=== PATIENT | male | born 1965 | race Caucasian/White ===

== ENCOUNTER 2019-05-24 21:17 | Emergency (ER) | payer OTHER, SELFPAY ==
--- NOTE | ~2019-05-24 | XR_ITS ---
EXAMINATION: XR chest 2V 05/24/2019 21:47 INDICATION: Shortness of breath PROCEDURE: 2 view chest COMPARISON: Comparison to multiple prior studies sequentially, with oldest reviewed study dated Palomo rison to multiple prior studies sequentially, with oldest reviewed study dated 06/01/2018. . FINDINGS: The lungs are clear. The lungs are hyperinflated which is consistent with, but not diagnost ic of chronic obstructive pulmonary disease. The cardiomediastinal silhouette is within normal limits . There are no pleural effusions. There is no pneumothorax suspected. There is side plate and scre ws transfixing the right clavicle. Mild superior endplate compression deformities noted in multiple m idthoracic vertebra which appear chronic. IMPRESSION: 1: NO ACUTE CARDIOPULMONARY DISEASE. Reviewed, dictated and finalized at location A.
[2019-05-24 21:17] VITALS: BP 149/97; PULSE 96; RESP 24; TEMP 36.8; O2SAT 95
[2019-05-24 21:45] VITALS: BP 139/93; PULSE 100; PULSE 92; RESP 22; RESP 28; O2SAT 99
[2019-05-24] MEDS: SODIUM CHLORIDE 0.9% IV 1,000 ML 999 ML IV CONT (21:45)
[2019-05-24] MEDS: IPRATROPIUM 0.5 MG/ALBUTEROL SULFATE 2.5 MG AMPUL.NEB 3 ML INHALATION (21:46)
[2019-05-24] MEDS: KETOROLAC 30 MG/ML VIAL (*BKC) IV PUSH (21:46)
[2019-05-24] MEDS: methylPREDNISolone SOD SUCC 125 MG VIAL IV PUSH (21:46)
[2019-05-24 21:56] LABS: Basophils Absolute Auto 0.03 K/mm3 (0.00-0.10); Basophils Percent Auto 0.5 % (0.0-1.0); Eosinophils Absolute Auto 0.22 K/mm3 (0.02-0.50); Eosinophils Percent Auto 3.7 % (1.0-6.0); Hematocrit 44.5 % (40.0-54.0); Hemoglobin 15.1 g/dL (14.0-18.0); Immature Granulocyte Absolute 0.02 K/mm3 (0.00-0.00); Immature Granulocyte Percent A 0.3 % (0.0-0.0); Lymphocytes Absolute Auto 1.46 K/mm3 (1.10-4.50); Lymphocytes Percent Auto 24.4 % (18.0-42.0); Mean Corpuscular HGB Conc 33.9 g/dL (32.0-36.0); Mean Corpuscular Hemoglobin 29.2 pg (27.0-31.0); Mean Corpuscular Volume 85.9 fL (78.0-102.0); Mean Platelet Volume 9.9 fl (8.7-11.0); Monocytes Absolute Auto 0.33 K/mm3 (0.10-0.90); Monocytes Percent Auto 5.5 % (2.0-11.0); Neutrophils Absolute Auto 3.9 K/mm3 (1.7-7.2); Neutrophils Percent Auto 65.6 % (50.0-70.0); Platelet Count Result 213 K/mm3 (150-420); Red Blood Count 5.18 M/mm3 (4.70-6.10); Red Cell Distribution Width 12.7 % (11.6-14.4)
[2019-05-24 22:09] LABS: Alanine Aminotransferase 43 U/L (16-63); Albumin Level 3.8 g/dL (3.4-5.0); Alkaline Phosphatase 193 U/L (46-116); Anion Gap 11.2 mmol/L (7-16); Aspartate Amino Transferase 24 U/L (15-37); Bilirubin,Total 0.5 mg/dL (0.00-1.00); Blood Urea Nitrogen 10 mg/dL (7-18); Calcium 8.6 mg/dL (8.5-10.1); Carbon Dioxide 28 mmol/L (21-32); Chloride 103 mmol/L (98-108); Estimated CRCL calculation 81 ml/min; Estimated Glomerular Filt Rate > 60; Glucose 87 mg/dL (70-99); Osmolality Calculated 284 mOsm/kg (285-295); Potassium 4.2 mmol/L (3.5-5.1); Sodium 138 mmol/L (136-145); Total Protein 7.7 g/dL (6.4-8.2)
[2019-05-24 22:10] LABS: Ethanol 7 mg/dL (0-6)
[2019-05-24 22:12] LABS: Influenza Control Valid (Valid)
--- NOTE | 2019-05-24 22:13 | PC.NURSE ---
Dr Yates at bedside for re-eval.
--- NOTE | 2019-05-24 22:15 | ED.SOB ---
HPI - SOB/Dyspnea General Chief Complaint: Shortness of Breath/Dyspnea Stated Complaint: amb Source: patient Mode of arrival: EMS Limitations: no limitations History of Present Illness HPI Narrative: This is a 53-year-old patient male that presents via EMS with shortness of breath, patient called EMS because he was having hard time with his breathing did receive a DuoNeb EN route to the ER. While in ER his O2 sats hovered around 91% was given additional DuoNeb and IV steroids. Denies any chest pain or pressure does have a mild nonproductive cough with some audible wheezing and diminished breath sounds but there is no nausea vomiting no abdominal pain no fever or chills. MD elicited complaint: shortness of breath and cough Pertinent past history: COPD Onset (ago): day(s) Context: recent illness Timing: intermittent Severity: mild Exacerbating factors: coughing Known history of: COPD Associated symptoms: denies other symptoms Treatment prior to arrival: bronchodilator Related Data Home oxygen amount: none Home Medications Medication Instructions Recorded Confirmed ipratropium-albuterol 3 ml INHALATION Q4HWA PRN 01/20/19 05/24/19 tramadol 50 mg PO Q6-8H PRN 03/16/19 05/24/19 atorvastatin 10 mg PO DAILY 05/24/19 05/24/19 ergocalciferol (vitamin D2) 50,000 unit PO WEEKLY 05/24/19 05/24/19 omeprazole 20 mg PO BID 05/24/19 05/24/19 Allergies Allergy/AdvReac Type Severity Reaction Status Date / Time No Known Allergies Allergy Verified 01/20/19 11:35 Review of Systems Review of Systems: All systems reviewed & are unremarkable except as noted in HPI and below PMFSH Past Medical History Medical History Abdominal pain Alcohol abuse Anxiety Chronic narcotic use Chronic pain COPD (chronic obstructive pulmonary disease) History of fracture of left ankle Ileus Nicotine abuse Surgical History Surgical History H/O left wrist surgery Hx of cholecystectomy Family History Family History Father Diabetes mellitus Mother Hypertension Social History Social History Smoking packs per day: 2 Smoking cigarettes per day: 40.0 Smoking status: Current every day smoker Alcohol intake: current Drinks per week: 28 Substance use type: does not use Additional living arrangements comments: the patient is engaged and lives with his fiancee. He does not have a durable power green end man for healthcare. The patient wishes to be a full code. The patient has no children. He is a retired fabrication mig welder. Gender identity (if verbalized by the patient): Male Spiritual care concerns: No Agree to blood products: Yes Exam Const: General: no acute distress and alert Nutritional Appearance: well nourished Orientation/consciousness: patient oriented x3 HENMT: Head: normal to inspection Eyes: Conjunctivae: conjunctivae normal Pupils: Equal, round and reactive pupils present Neck: Neck: normal visual inspection, no lymphadenopathy and no meningeal signs Chest: Chest palpation & inspection: normal inspection of the chest Resp: Effort & Inspection: normal respiratory effort Auscultation: wheezes and diminished lung sounds Cardio: Rate: regular rate Rhythm: regular rhythm GI: GI Palp: Yes Soft to palpation Back/Spine/Pelvis: Back: no CVA tenderness Skin: General skin exam: normal color Rashes: no rashes Neuro: General: patient oriented x3, moves all extremities and no meningeal signs Extrem: General: normal to inspection Course Course Emergency Course: Patient O2 sats at about 94 to 95% after breathing treatment and IV steroids patient is breathing much easier Vital Signs Vital signs: Vital Signs Temperature 36.8 C 05/24/19 21:17 Pulse Rate 96 05/24/19 21:17 Respiratory Rate 2
[2019-05-24 22:20] VITALS: BP 133/87; PULSE 96; RESP 22; O2SAT 95
== END 2019-05-24 22:20 | disposition home or self-care (01) ==
PROVIDERS: Emergency Provider Emergency Medicine
DX: J44.9 Chronic obstructive pulmonary disease, unspecified (principal)
CPT/HCPCS: 36415; 71046; 80053; 80307; 85025; 87040; 87804; 94640; 96361; 96374; 96375; 99283; 99284; J1885; J2930; J7030

== ENCOUNTER 2019-11-13 08:11 | Outpatient (CLI) | payer OTHER, SELFPAY ==
--- NOTE | ~2019-11-13 | XR_ITS ---
EXAMINATION: [id number] INDICATION: Left rib pain TECHNIQUE: A frontal view of the chest and 3 views of the left ribs were obtained. COMPARISON: 05/24/2019 FINDINGS: There is an old, healed fracture of the left fourth rib. No acute rib fracture is identifie d. The lungs are free of acute opacities. There is no pleural effusion or pneumothorax. The cardiomed iastinal silhouette is normal. Internal stabilization hardware is noted in the right clavicle. IMPRESSION: 1. No acute cardiopulmonary abnormality or evidence of acute displaced rib fracture. Reviewed, dictated and finalized at location A. IMPRESSION: 1. No acute cardiopulmonary abnormality or evidence of acute displaced rib frac ture.
--- NOTE | ~2019-11-13 | XR_ITS ---
EXAMINATION: XR elbow LT min 3V DATE: 11/13/2019 08:44 INDICATION: Left elbow pain. TECHNIQUE: 4 views of left elbow were obtained. COMPARISON: Left elbow radiographs 09/23/2018 FINDINGS: Bone alignment is normal. No fracture. There is mild elbow joint osteoarthritis characteriz ed by tiny marginal osteophytes. There is an enthesophyte at olecranon. There is no elbow joint effus ion. IMPRESSION: 1. Mild elbow joint osteoarthritis. Reviewed, dictated and finalized at location A.
== END 2019-11-13 08:12 | disposition home or self-care (01) ==
LOC: CHSIMG 08:13
PROVIDERS: PCP Nurse Practitioner Family; Visit Provider Nurse Practitioner Family
DX: M25.522 Pain in left elbow (principal); R07.81 Pleurodynia
CPT/HCPCS: 71101; 73080

== ENCOUNTER 2019-12-10 07:38 | Emergency (ER) | payer OTHER, SELFPAY ==
--- NOTE | ~2019-12-10 | CT_ITS ---
EXAMINATION: CT abdomen pelvis w con EXAM DATE: 12/10/2019 09:22 INDICATION: Left upper quadrant pain radiating to left flank. History of ileus.? Hernia. TECHNIQUE: Spiral CT of the abdomen and pelvis was performed following intravenous injection of 100 m L Omnipaque 350. Axial, coronal and sagittal images were reviewed. The dose-length product (DLP) fo r this examination was 625.87 mGy-cm. The exposure was tailored according to patient size (auto mA e xposure control), and iterative reconstruction (ASIR) was used as additional dose reduction technique . Comparison is made to prior examination from 03/16/2019. FINDINGS: The liver, spleen, adrenal glands and pancreas are unremarkable. There are cholecystectomy clips. Portal and splenic veins are patent. Kidneys enhance symmetrically. There is no hydronephr osis. The prostate is unremarkable. The bladder is unremarkable. There is no retroperitoneal or p elvic lymphadenopathy. There is mild scattered arteriosclerotic disease. There is small right ingui nal fat-containing hernia. Small umbilical fat-containing hernia. The appendix is normal. The stomach and small bowel are unremarkable. There is expected amount of c olonic stool. No free intraperitoneal gas. The heart is normal in size. There are no pericardial or pleural effusions. The lung bases are unremarkable. There are no osteoblastic or osteolytic les ions identified. IMPRESSION: 1. Small umbilical and right inguinal fat-containing hernias. 2. No acute intra-abdominal findings. Reviewed, dictated and finalized at location A.
[2019-12-10 07:45] VITALS: BP 178/112; PULSE 97; RESP 20; TEMP 37.1; O2SAT 95
--- NOTE | 2019-12-10 08:04 | ED.ABDPAIN ---
HPI - Abdominal Pain General Chief Complaint: Abdominal Pain Stated Complaint: hernia Time Seen by Provider: 12/10/19 07:50 History of Present Illness HPI narrative: 54-year-old male patient is here with chief complaints of diffuse abdominal pain for the last 2 weeks. He states that the pain is generalized and sometimes localizes more to the left upper abdomen. He describes the pain as having 'dropped is got caught . The patient denies any associated nausea vomiting a day patient states that there is no difficulty in urination. The patient denies any fever or chills. Patient has been seen by his primary care physician for this complaint and is currently on some muscle relaxants and has been taking ibuprofen regularly. The patient has had no relief. Apparently patient has had similar abdominal pains in the past as well and current his past medical history he has had ileus. He has a history of prior cholecystectomy. Related Data Home Medications Medication Instructions Recorded Confirmed ipratropium-albuterol 3 ml INHALATION Q4HWA PRN 01/20/19 12/10/19 atorvastatin 10 mg PO DAILY 12/10/19 12/10/19 cyclobenzaprine 10 mg PO TID 12/10/19 12/10/19 diclofenac sodium 75 mg PO BID 12/10/19 12/10/19 fluticasone propion-salmeterol 1 inh INHALATION DAILY 12/10/19 12/10/19 [Wixela Inhub] levalbuterol HCl 1.25 mg INHALATION Q4-6H PRN 12/10/19 12/10/19 lisinopril 20 mg PO DAILY 12/10/19 12/10/19 prednisone 10 mg PO DAILY 12/10/19 12/10/19 Allergies Allergy/AdvReac Type Severity Reaction Status Date / Time No Known Allergies Allergy Verified 01/20/19 11:35 Review of Systems Review of Systems: All systems reviewed & are unremarkable except as noted in HPI and below Cardiovascular: Cardiovascular: Denies chest pain, Denies rapid heart rate, Denies radiating jaw, neck or arm pain and Denies slow heart rate Respiratory: Respiratory: Reports no additional respiratory complaints Neurologic: Denies vertigo and Denies dizziness Psychiatric: Psychiatric: Reports no additional psychiatric complaints PMFSH Past Medical History Medical History Abdominal pain Alcohol abuse Anxiety Chronic narcotic use Chronic pain COPD (chronic obstructive pulmonary disease) History of fracture of left ankle Ileus Nicotine abuse Surgical History Surgical History H/O left wrist surgery Hx of cholecystectomy Family History Family History Father Diabetes mellitus Mother Hypertension Social History Social History Smoking packs per day: 2 Smoking cigarettes per day: 40.0 Smoking status: Current every day smoker Alcohol intake: current Drinks per week: 28 Substance use type: does not use Additional living arrangements comments: the patient is engaged and lives with his fiancee. He does not have a durable power employment law attorney for healthcare. The patient wishes to be a full code. The patient has no children. He is a retired welder fitter arc. Gender identity (if verbalized by the patient): Male Spiritual care concerns: No Agree to blood products: Yes Exam Const: General: no acute distress and alert Orientation/consciousness: patient oriented x3 HENMT: Head: normal to inspection Eyes: Conjunctivae: conjunctivae normal Pupils: Equal, round and reactive pupils present EOM: EOMs intact bilaterally Neck: Neck: normal visual inspection Chest: Chest palpation & inspection: normal inspection of the chest Resp: Effort & Inspection: normal respiratory effort Auscultation: clear to auscultation bilaterally Cardio: Rate: regular rate Rhythm: regular rhythm GI: GI Palp: Yes Soft to palpation, Yes Tenderness to palpation present (GI) (Minimally tender diffusely), No Guarding due to palpation present (GI), No Rigid due to palpation,
[2019-12-10 08:15] VITALS: BP 140/83; PULSE 90; RESP 18; O2SAT 97
[2019-12-10] MEDS: KETOROLAC 30 MG/ML VIAL (*BKC) IV PUSH (08:23)
[2019-12-10 08:27] LABS: Add Urine Microscopic? NO; Appearance Urine Clear (Clear); Bilirubin Urine Negative (Negative); Blood Urine Negative (Negative); Color Urine Yellow (Yellow); Glucose Urine UA Negative (Negative); Ketones Urine Negative (Negative); Leukocyte Esterase Ur Negative LEU/UL (Negative); Nitrate Urine Negative (Negative); Protein Urine Negative (Negative); Specific Grav Ur 1.015 (1.010-1.020); Urobilinogen Urine 0.2 mg/dL (0.2-1.0)
[2019-12-10 08:40] LABS: Basophils Absolute Auto 0.03 K/mm3 (0.00-0.10); Basophils Percent Auto 0.4 % (0.0-1.0); Eosinophils Absolute Auto 0.09 K/mm3 (0.02-0.50); Eosinophils Percent Auto 1.2 % (1.0-6.0); Hematocrit 44.3 % (40.0-54.0); Immature Granulocyte Absolute 0.04 K/mm3 (0.00-0.00); Immature Granulocyte Percent A 0.5 % (0.0-0.0); Lymphocytes Absolute Auto 1.35 K/mm3 (1.10-4.50); Lymphocytes Percent Auto 17.4 % (18.0-42.0); Mean Corpuscular HGB Conc 33.9 g/dL (32.0-36.0); Mean Corpuscular Hemoglobin 30.1 pg (27.0-31.0); Mean Platelet Volume 9.6 fl (8.7-11.0); Monocytes Absolute Auto 0.45 K/mm3 (0.10-0.90); Monocytes Percent Auto 5.8 % (2.0-11.0); Neutrophils Absolute Auto 5.8 K/mm3 (1.7-7.2); Neutrophils Percent Auto 74.7 % (50.0-70.0); Platelet Count Result 203 K/mm3 (150-420); Red Blood Count 4.98 M/mm3 (4.70-6.10); Red Cell Distribution Width 13.6 % (11.6-14.4); White Blood Count 7.8 K/mm3 (4.8-10.8)
[2019-12-10 08:58] LABS: Alanine Aminotransferase 78 U/L (16-63); Albumin Level 4.2 g/dL (3.4-5.0); Alkaline Phosphatase 114 U/L (46-116); Anion Gap 7 mmol/L (8-16); Aspartate Amino Transferase 26 U/L (15-37); Bilirubin Direct 0.2 mg/dL (0-0.2); Blood Urea Nitrogen 16 mg/dL (7-18); Calcium 8.9 mg/dL (8.5-10.1); Carbon Dioxide 30 mmol/L (21-32); Chloride 99 mmol/L (98-108); Estimated CRCL calculation 77 ml/min; Estimated Glomerular Filt Rate > 60; Glucose 103 mg/dL (70-99); Lipase 55 U/L (73-393); Osmolality Calculated 283 mOsm/kg (285-295); Potassium 4.1 mmol/L (3.5-5.1); Sodium 136 mmol/L (136-145); Total Protein 7.5 g/dL (6.4-8.2)
[2019-12-10 09:59] VITALS: BP 138/78; PULSE 97; RESP 18; TEMP 36.6; O2SAT 98
== END 2019-12-10 10:04 | disposition home or self-care (01) ==
PROVIDERS: Emergency Provider Emergency Medicine; PCP Nurse Practitioner Family
DX: R10.9 Unspecified abdominal pain (principal)
CPT/HCPCS: 36415; 74177; 80053; 81003; 82248; 83690; 85025; 96374; 99284; J1885; Q9965

== ENCOUNTER 2020-07-14 17:34 | Emergency (ER) | payer MEDICARE, MEDICAID, SELFPAY ==
[2020-07-14 17:47] VITALS: BP 163/103; PULSE 90; RESP 20; TEMP 37.2; O2SAT 94
--- NOTE | 2020-07-14 17:59 | ED.GENADULT ---
HPI - General Adult General Chief complaint: Unspecified Stated complaint: High BP Source: patient and RN notes reviewed Mode of arrival: ambulatory Limitations: no limitations History of Present Illness HPI narrative: Patient had elevated blood pressure At his primary care office it was 146/110 he was given 10 mg of lisinopril and 0.1 of clonidine and went home at home it was 176/118 he called back to his PCP and was advised to come here. complaint: Elevated BP Onset (ago): hour(s) (10) Severity: moderate Associated symptoms: denies other symptoms Treatments prior to arrival: none Related Data Home Medications Medication Instructions Recorded Confirmed ipratropium-albuterol 3 ml INHALATION Q4HWA PRN 01/20/19 07/14/20 atorvastatin 10 mg PO DAILY 12/10/19 07/14/20 cyclobenzaprine 10 mg PO TID 12/10/19 07/14/20 diclofenac sodium 75 mg PO BID 12/10/19 07/14/20 fluticasone propion-salmeterol 1 inh INHALATION DAILY 12/10/19 07/14/20 [Wixela Inhub] levalbuterol HCl 1.25 mg INHALATION Q4-6H PRN 12/10/19 07/14/20 lisinopril 20 mg PO DAILY 12/10/19 07/14/20 prednisone 10 mg PO DAILY 12/10/19 07/14/20 Allergies Allergy/AdvReac Type Severity Reaction Status Date / Time No Known Allergies Allergy Verified 01/20/19 11:35 Review of Systems Review of Systems: All systems reviewed & are unremarkable except as noted in HPI and below Musculoskeletal: Comments: left-sided rib pain he has had for 3 months [facility] Past Medical History Medical History (Updated 07/14/20 @ 18:52 by Tomas Thompson MD) Abdominal pain Alcohol abuse Anxiety Chronic narcotic use Chronic pain COPD (chronic obstructive pulmonary disease) History of fracture of left ankle Hypertension Ileus Nicotine abuse Surgical History Surgical History H/O left wrist surgery Hx of cholecystectomy Family History Family History Father Diabetes mellitus Mother Hypertension Social History Social History Smoking packs per day: 2 Smoking cigarettes per day: 40.0 Smoking status: Current every day smoker Alcohol intake: current Drinks per week: 28 Substance use type: does not use Additional living arrangements comments: the patient is engaged and lives with his fiancee. He does not have a durable power state attorney for healthcare. The patient wishes to be a full code. The patient has no children. He is a retired welder production line combination. Gender identity (if verbalized by the patient): Male Spiritual care concerns: No Agree to blood products: Yes Exam Const: General: cooperative, healthy appearing and no acute distress Nutritional Appearance: average body habitus and well nourished Orientation/consciousness: patient oriented x3 Limitations: no limitations HENMT: Head: normal to inspection Ears: external ears normal Face and sinus: normal facial exam Mouth: Yes moist mucous membranes Eyes: Conjunctivae: conjunctivae normal Pupils: Equal, round and reactive pupils present EOM: EOMs intact bilaterally Neck: Neck: normal visual inspection Resp: Effort & Inspection: normal respiratory effort Auscultation: clear to auscultation bilaterally Cardio: Rate: regular rate Rhythm: regular rhythm GI: GI Palp: Yes Soft to palpation and No Tenderness to palpation present (GI) Auscultation: normal bowel sounds Back/Spine/Pelvis: Cervical Spine: cervical ROM normal Thoracic/Lumbar Spine: thoraco-lumbar ROM normal Skin: General skin exam: normal color Neuro: General: patient oriented x3, moves all extremities, no meningeal signs and no focal motor deficits Speech: normal speech Gait exam (Neuro): Normal gait present Extrem: General: normal to inspection and no clubbing, cyanosis or edema Psych: Appearance: grossly normal and well kempt Mental Status: mental status grossly normal Affect: no
--- NOTE | 2020-07-14 18:04 | PC.NURSE ---
PATIENT DRINKS DAILY, SMOKES 2 PACKS A DAY OF CIGARETTES
[2020-07-14] MEDS: hydrALAZINE HCL 25 MG TABLET PO (18:10)
[2020-07-14 18:47] VITALS: BP 135/100; PULSE 90; RESP 18; O2SAT 94
--- NOTE | 2020-07-14 18:49 | PC.NURSE ---
patient on list to get COVID vaccine
[2020-07-14 19:11] VITALS: BP 138/99; PULSE 88; RESP 18; TEMP 37; O2SAT 94
== END 2020-07-14 19:12 | disposition home or self-care (01) ==
PROVIDERS: Emergency Provider Emergency Medicine; PCP Nurse Practitioner Family
DX: I16.0 Hypertensive urgency (principal); G89.29 Other chronic pain; J44.9 Chronic obstructive pulmonary disease, unspecified; I10 Essential (primary) hypertension; F10.11 Alcohol abuse, in remission; F41.9 Anxiety disorder, unspecified; F19.10 Other psychoactive substance abuse, uncomplicated; Z87.81 Personal history of (healed) traumatic fracture
CPT/HCPCS: 99283; A9270

== ENCOUNTER 2020-07-16 09:12 | Outpatient (CLI) | payer MEDICARE, MEDICAID, SELFPAY ==
--- NOTE | ~2020-07-16 | XR_ITS ---
EXAMINATION: XR knee LT min 4V DATE: 07/16/2020 09:49 INDICATION: Left knee pain TECHNIQUE: Four views of the left knee were obtained. COMPARISON: None. FINDINGS: Alignment is normal. No fracture or osteochondral lesion. Joint spaces are normal with no e rosions. No joint effusion/synovitis. Soft tissues are unremarkable. IMPRESSION: 1. No acute osseous abnormality. Reviewed, dictated and finalized at location A.
== END 2020-07-16 09:13 | disposition home or self-care (01) ==
LOC: CHSIMG 09:15
PROVIDERS: PCP Nurse Practitioner Family; Visit Provider Nurse Practitioner Family
DX: M25.562 Pain in left knee (principal)
CPT/HCPCS: 73564

== ENCOUNTER 2021-07-15 11:14 | Emergency (ER) | payer MEDICARE, MEDICAID, SELFPAY ==
--- NOTE | ~2021-07-15 | XR_ITS ---
EXAMINATION: XR chest 1V portable DATE: 07/15/2021 12:16 INDICATION: Shortness of breath. Chest pain. TECHNIQUE: A single frontal view of the chest was obtained. COMPARISON: Chest 2 views 05/24/2019, CT abdomen and pelvis 12/10/2019 FINDINGS: There is mild atelectasis in left lower lung zone. Calcified left lung nodules and calcifie d left hilar lymph nodes are consistent with old granulomatous disease. No pleural effusion or pneumo thorax. The heart size is normal. There is plate and screw fixation of right clavicle. There are old healed left rib fractures. IMPRESSION: 1. Mild atelectasis in left lower lung zone. Reviewed, dictated and finalized at location B.
[2021-07-15 11:28] VITALS: BP 155/94; PULSE 77; RESP 16; TEMP 36.6; O2SAT 96
--- NOTE | 2021-07-15 11:30 | ED.CHESTPAIN ---
HPI - Chest Pain General Chief Complaint: Chest Pain Stated Complaint: High Blood Pressure/Chest pain Time Seen by Provider: 07/15/21 11:30 Source: patient History of Present Illness HPI narrative: 55-year-old male, smoker, alcoholic with hypertension, COPD, chronic pain, anxiety, duodenal ulcer presents to the ER -- left-sided chest pain off and on for the past 3 weeks. he was seen by his PCP had blood work and EKG done 1 week ago. -- Shortness of breath -- diarrhea diffuse abdominal past few days patient had a negative Cardiac stress test 2011. complaint: chest pain Onset (ago): week(s) ( started 3 weeks ago) Timing of current episode: constant Prior episodes: No Onset: during rest Pain location: left chest Pain radiation: none Pain scale (0-10): 4 Quality: aching Relieving factors: nothing Exacerbating factors: nothing Associated symptoms: palpitations Treatment prior to arrival: none Related Data Home Medications Medication Instructions Recorded Confirmed ipratropium-albuterol 3 ml INHALATION Q4HWA PRN 01/20/19 07/15/21 atorvastatin 10 mg PO DAILY 12/10/19 07/15/21 lisinopril 20 mg PO DAILY 12/10/19 07/15/21 gabapentin 400 mg PO DAILY 07/15/21 07/15/21 meloxicam 7.5 mg PO DAILY 07/15/21 07/15/21 metoprolol succinate 100 mg PO BID 07/15/21 07/15/21 Allergies Allergy/AdvReac Type Severity Reaction Status Date / Time No Known Allergies Allergy Verified 07/15/21 11:33 [facility] Past Medical History Medical History (Updated 07/15/21 @ 13:49 by Abhilash Govea MD) Abdominal pain Alcohol abuse Anxiety Chronic narcotic use Chronic pain COPD (chronic obstructive pulmonary disease) History of fracture of left ankle Hypertension Ileus Nicotine abuse Surgical History Surgical History H/O left wrist surgery Hx of cholecystectomy Family History Family History Father Diabetes mellitus Mother Hypertension Social History Social History Smoking packs per day: 2 Smoking cigarettes per day: 40.0 Smoking status: Current every day smoker Alcohol intake: current Drinks per week: 28 Substance use type: does not use Additional living arrangements comments: the patient is engaged and lives with his fiancee. He does not have a durable power contract attorney for healthcare. The patient wishes to be a full code. The patient has no children. He is a retired welder manufacture. Gender identity (if verbalized by the patient): Male Spiritual care concerns: No Agree to blood products: Yes Course Course Emergency Course: chest discomfort- rule out coronary artery disease shortness of breath-- Vital Signs Vital signs: Vital Signs Temperature 36.6 C 07/15/21 11:28 Pulse Rate 77 07/15/21 11:28 Respiratory Rate 16 07/15/21 11:28 Blood Pressure 155/94 H 07/15/21 11:28 Pulse Oximetry 96 07/15/21 11:28 Temperature 36.6 C 07/15/21 11:28 Pulse Rate 77 07/15/21 11:28 Respiratory Rate 16 07/15/21 11:28 Blood Pressure 155/94 H 07/15/21 11:28 Pulse Oximetry 96 07/15/21 11:28 MDM - Chest Pain MDM Narrative Medical decision making narrative: chest pain shortness of breath abdominal pain Differential Diagnosis Differential diagnosis: Likely pneumothorax, unstable angina pectoris and atypical chest pain Medical Records Data Attestation: I reviewed the patient's medical records. Lab Data Attestation: I reviewed the patient's lab results. Result diagrams: 07/15/21 12:28 07/15/21 12:30 Labs: Lab Results 07/15/21 07/15/21 07/15/21 Range/Units 12:28 12:28 12:28 WBC 5.6 (4.8-10.8) K/mm3 RBC 5.14 (4.70-6.10) M/mm3 Hgb 15.1 (14.0-18.0) g/dL Hct 45.0 (40.0-54.0) % MCV 87.5 (78.0-102.0) fL MCH 29.4 (27.0-31.0) pg MCHC 33.6 (32.0-36.0) g/dL RDW 12.5
--- NOTE | 2021-07-15 11:41 | ECG_ITS ---
Measurements Intervals [place]us Rate: 68 P: 71 MN: 192 QRS: 46 QRSD: 93 T: 69 QT: 391 QTc: 417 Interpretive Statements SINUS RHYTHM INCOMPLETE RIGHT BUNDLE BRANCH BLOCK BASELINE ARTIFACT- II, III BORDERLINE ECG Electronically Signed On 07-15-2021 12:07:13 CDT by Eduin Wetzel D.O.
[2021-07-15] MEDS: ASPIRIN 81 MG CHEWABLE TABLET 324 MG PO (12:21)
[2021-07-15 12:37] LABS: Basophils Absolute Auto 0.04 K/mm3 (0.00-0.10); Basophils Percent Auto 0.7 % (0.0-1.0); Eosinophils Absolute Auto 0.13 K/mm3 (0.02-0.50); Eosinophils Percent Auto 2.3 % (1.0-6.0); Hemoglobin 15.1 g/dL (14.0-18.0); Immature Granulocyte Absolute 0.03 K/mm3 (0.00-0.00); Immature Granulocyte Percent A 0.5 % (0.0-0.0); Lymphocytes Absolute Auto 1.26 K/mm3 (1.10-4.50); Lymphocytes Percent Auto 22.6 % (18.0-42.0); Mean Corpuscular HGB Conc 33.6 g/dL (32.0-36.0); Mean Corpuscular Hemoglobin 29.4 pg (27.0-31.0); Mean Corpuscular Volume 87.5 fL (78.0-102.0); Monocytes Absolute Auto 0.41 K/mm3 (0.10-0.90); Monocytes Percent Auto 7.4 % (2.0-11.0); Neutrophils Absolute Auto 3.7 K/mm3 (1.7-7.2); Neutrophils Percent Auto 66.5 % (50.0-70.0); Platelet Count Result 206 K/mm3 (150-420); Red Blood Count 5.14 M/mm3 (4.70-6.10); Red Cell Distribution Width 12.5 % (11.6-14.4); White Blood Count 5.6 K/mm3 (4.8-10.8)
[2021-07-15 12:52] LABS: Partial Thromboplastin Time 30.1 SEC (23.90-30.70); Prothrombin Time 10.5 Seconds (9.50-12.10)
[2021-07-15 13:00] LABS: Alanine Aminotransferase 58 U/L (16-63); Albumin Level 3.6 g/dL (3.4-5.0); Alkaline Phosphatase 137 U/L (46-116); Anion Gap 7 mmol/L (8-16); Aspartate Amino Transferase 24 U/L (15-37); Bilirubin,Total 0.5 mg/dL (0.00-1.00); Blood Urea Nitrogen 12 mg/dL (7-18); Calcium 8.8 mg/dL (8.5-10.1); Carbon Dioxide 29 mmol/L (21-32); Chloride 101 mmol/L (98-108); Estimated Glomerular Filt Rate > 60; Glucose 91 mg/dL (70-99); Lipase 68 U/L (73-393); Magnesium 2.2 mg/dL (1.8-2.4); NT Pro B Type Natriuretic Pept 84 pg/mL (0-125); Osmolality Calculated 283 mOsm/kg (285-295); Potassium 4.1 mmol/L (3.5-5.1); Sodium 137 mmol/L (136-145); Troponin I 48.7 ng/L (0.00-60.4)
[2021-07-15 13:12] LABS: Influenza A QL RT-PCR Negative (Negative); Influenza B QL RT-PCR Negative (Negative); SARS-CoV-2 RNA PCR Negative (Negative)
[2021-07-15 13:37] LABS: Lactic Acid Reflex 0.9 mmol/L (0.4-2.0)
[2021-07-15 14:13] VITALS: BP 140/90; PULSE 77; RESP 16; TEMP 36.4; O2SAT 96
== END 2021-07-15 14:15 | disposition home or self-care (01) ==
PROVIDERS: Emergency Provider Internal Medicine Critical Care Medicine; PCP Nurse Practitioner Family
DX: R07.9 Chest pain, unspecified (principal); J44.9 Chronic obstructive pulmonary disease, unspecified; R10.84 Generalized abdominal pain; I10 Essential (primary) hypertension; R06.02 Shortness of breath; Z20.822 Contact with and (suspected) exposure to COVID-19; F17.200 Nicotine dependence, unspecified, uncomplicated
CPT/HCPCS: 36415; 71045; 80053; 83605; 83690; 83735; 83880; 84484; 85025; 85610; 85730; 87502; 93005; 99284; A9270; C9803; U0003; U0005

== ENCOUNTER 2021-08-24 10:58 | Outpatient (CLI) | payer MEDICARE, MEDICAID, SELFPAY ==
--- NOTE | 2021-08-24 11:10 | EST_ITS ---
Patient Info Name: Tico Mayorga Age: 55 years : 1965 Gender: Male Ht: 66 in Wt: 185 lbs BSA: 2.00 m2 Exam Date: 08/24/2021 12:30 PM Exam Location: [facility] Patient Status: Outpatient Admit Date: 08/24/2021 Staff Ordering Physician: Eduin Wetzel DO Attending Provider: Eduin Wetzel DO Exam Type: CA stress eric w NM Summary 1. 1. Negative lexiscan stress test for ischemic ST changes by ECG criteria. 2. 2. Stable hemodynamics throughout the test. 3. 3. Nuclear scan to follow and will be reported separately. Please correlate with it. 4. 4. Patient informed of the above results. Protocol: LEXISCAN Stress ECG Details Stage: REST Duration (min): 0 min : 37 sec HR (bpm): 95 SBP (mmHg): 138 DBP (mmHg): 87 Stage: REST Duration (min): 2 min : 26 sec HR (bpm): 95 SBP (mmHg): 138 DBP (mmHg): 87 Stage: STAGE 1 Duration (min): 0 min : 11 sec HR (bpm): 94 SBP (mmHg): 138 DBP (mmHg): 87 Stage: RECOVERY Duration (min): 0 min : 48 sec HR (bpm): 110 SBP (mmHg): 138 DBP (mmHg): 87 Stage: RECOVERY Duration (min): 1 min : 48 sec HR (bpm): 107 SBP (mmHg): 149 DBP (mmHg): 86 Stage: RECOVERY Duration (min): 2 min : 48 sec HR (bpm): 104 SBP (mmHg): 141 DBP (mmHg): 88 Stage: RECOVERY Duration (min): 3 min : 48 sec HR (bpm): 102 SBP (mmHg): 138 DBP (mmHg): 89 Stage: RECOVERY Duration (min): 4 min : 48 sec HR (bpm): 101 SBP (mmHg): 136 DBP (mmHg): 89 Stage: RECOVERY Duration (min): 5 min : 48 sec HR (bpm): 100 SBP (mmHg): 132 DBP (mmHg): 87 Stage: RECOVERY Duration (min): 6 min : 3 sec HR (bpm): 101 SBP (mmHg): 132 DBP (mmHg): 87 Rest HR: 95 bpm Peak HR: 110 bpm Rest Sys BP: 138 mmHg Peak Sys BP: 149 mmHg Max Pred HR: 167 bpm % Max Pred HR: 66 % Target HR: 142 bpm Max RPP: 16,390 bpm*mmHg Termination Reason: Completed protocol Cardiac Symptoms: Shortness of breath Total Time: 0 min : 11 sec Rest Josue BP: 87 mmHg Peak Josue BP: 86 mmHg Total Dose: 0.4 mg Resting ECG Sinus rhythm, IRBBB, delayed precordial R/S transition. Stress ECG No ST changes. Arrhythmias None. Report Signatures
--- NOTE | 2021-08-24 15:30 | WPDCARIOSTRE ---
Nuclear Stress Test INDICATIONS Indications: SOB PROCEDURE Procedure Performed: Myocardial Perf Spect-Multi Procedure: Patient underwent a lexiscan stress test and immediately was injected with 32 mCi of cardiolyte. Multiple tomographic images were obtained. These are of good quality. There is evidence of small size mild inferior perfusion defect noted during stress imaging. A separate resting images were obtained after patient was injected with 10.4 mCi of cardiolyte. Multiple tomographic images were obtained. These are of good quality. There is evidence of small size mild inferior perfusion defect noted during rest imaging. CONCLUSION Conclusion: 1. Myocardial perfusion imaging demonstrating a fixed small size inferior perfusion defect suggestive of diaphragmatic attenuation artifact. 2. No evidence of reversible ischemia. 3. Left ventriculogram demonstrates normal measured ejection fraction of 64%. 4. TID score is normal at 0.94.
== END 2021-08-24 10:59 | disposition home or self-care (01) ==
LOC: CHSCARD 11:02
PROVIDERS: PCP Nurse Practitioner Family; Visit Provider Internal Medicine Cardiovascular Disease
DX: R07.9 Chest pain, unspecified (principal)
CPT/HCPCS: 78452; 93017; A9502; J2785

== ENCOUNTER 2021-09-09 16:59 | Outpatient (CLI) | payer MEDICARE, MEDICAID, SELFPAY ==
--- NOTE | ~2021-09-09 | XR_ITS ---
EXAMINATION: XR chest 2V Exam Date/Time: 09/09/2021 17:42 CDT HISTORY: SOB w/ cough, hx COPD Comparison: 07/15/2021 and 05/24/2019. RESULT: Lines, tubes, and devices: Intact right clavicular screw and plate fixation hardware. Lungs and pleura: Emphysematous change, otherwise clear. Cardiomediastinal silhouette: Stable cardiomediastinal silhouette, including central pulmonary arter ial dilation as can be seen with pulmonary arterial hypertension. Other: No acute osseous or upper abdominal finding. IMPRESSION: No acute cardiopulmonary process. Reviewed, dictated and finalized at location K.
== END 2021-09-09 17:00 | disposition home or self-care (01) ==
LOC: CHSIMG 17:03
PROVIDERS: PCP Nurse Practitioner Family; Visit Provider Nurse Practitioner Family
DX: R06.02 Shortness of breath (principal)
CPT/HCPCS: 71046

== ENCOUNTER 2021-10-14 08:17 | Outpatient (CLI) | payer MEDICARE, MEDICAID, SELFPAY ==
[2021-10-14 08:30] VITALS: PULSE 88; O2SAT 93
[2021-10-14 08:35] VITALS: PULSE 103; O2SAT 95
[2021-10-14 08:36] VITALS: PULSE 98; O2SAT 95
--- NOTE | 2021-10-14 12:24 | HOMEO2EVAL ---
Evaluation was performed at [facility] [place] Home Oxygen Evaluation RC: Home Oxygen (O2) Evaluation Start: 10/14/21 12:16 Freq: Status: Complete Protocol: RPE Activity Type Activity Date Activity User E-sign Co-sign Detail Recorded Client Recorded Date Recorded By Document 10/14/21 08:30 KAB [id number] 10/14/21 12:19 KAB Document 10/14/21 08:35 KAB [id number] 10/14/21 12:19 KAB Document 10/14/21 08:36 KAB [id number] 10/14/21 12:19 KAB 10/14/21 10/14/21 10/14/21 08:30 08:35 08:36 Home O2 Evaluation Test Phase Resting Exercise Exercise Oxygen Delivery Room Air Room Air Room Air Pulse Oximetry (90-100 %) 93 95 95 Pulse Rate (60-100 beats/min) 88 103 H 98 Activity Tolerance Excellent Excellent Excellent Ambulation Distance (feet) 510 Ambulation Distance (meters) 155.44 Home Oxygen Evaluation Comments will begin Patient walked approx 510 feet . He is winded. Spo2 remained good. Treatment Charges O2 Evaluation - Outpatient
--- NOTE | 2021-10-23 12:51 | WPDPFTINT ---
PFT Procedure Performed PFT Procedure Performed Spirometry with Pre/Post Bronchodilator Plethysmography (Lung Vol) Diffusing Cap (DLCO) Flow Vol Loop PFT Interpretation DOS: 10/14/2021 REQUESTING: Michele Kirk APRN REASON FOR TESTING: Dyspnea PULMONARY FUNCTION TESTS Results are reliable and reproducible. Spirometry: Pre-bronchodilator FEV1 is 11.7 L, 38% predicted, extremely decreased. The pre-bronchodilator FVC is 3.53 L, 91% predicted, normal. The FEV!/FVC ratio is 41% consistent with airflow obstruction. After bronchodilator, the FEV1 increases 8%, becomes 41% predicted, 1.26 L, still markedly decreased. THis is a 90 mL increase. The FVC becomes 97% predicted, 3.76 L, 7% increase, 230 ml. This is in the normal range. Lung volumes: Total lung capacity is 151% predicted, moderate hyperinflation, 8.73 L. RV is 261% predicted, 5.20 L, markedly increased consistent with severe air trapping. FRC PL is 139% predicted, increased. ERV is 1.28 L. Airway resistance is 448%, significantly increased. Diffusion: DLCO is 56% predicted, 13.2 mL/min/mmHg. DLCO/VA is 58% predicted, 2.28 mL/min/mmHg. Flow volume loop: There is coving of the expiratory limb consistent with airflow obstruction. IMPRESSION: There is a severe obstructive ventilatory impairment without response to bronchodilator, severe hyperinflation, extremely severe air trapping, moderate diffusion impairment. In the proper setting this may be consistent with emphysema. Lack of response to bronchodilator should not preclude use if clinically indicated. Donna Dykes MD
== END 2021-10-14 08:18 | disposition home or self-care (01) ==
LOC: CHSIMG 08:20
PROVIDERS: PCP Nurse Practitioner Family; Visit Provider Nurse Practitioner Family
DX: R06.00 Dyspnea, unspecified (principal); Z87.891 Personal history of nicotine dependence
CPT/HCPCS: 94618

== ENCOUNTER 2021-11-09 08:45 | Outpatient (CLI) | payer MEDICARE, MEDICAID, SELFPAY ==
--- NOTE | ~2021-11-09 | CT_ITS ---
EXAMINATION:CT lung screening DATE: 11/09/2021 09:05 INDICATION: Personal history of nicotine dependence. Current smoker with 70 pack-year history. TECHNIQUE: Computed tomography (CT) of the chest was performed without intravenous contrast. Automate d exposure control and iterative reconstruction technique were employed. The dose-length product (DLP ) was 152.78 mGy-cm. COMPARISON: CT abdomen and pelvis 12/10/2019, chest 2 views 09/09/2021 FINDINGS: There is moderate emphysema. There is mild scarring at the lung apices. Calcified bilateral lung nodules and calcified hilar and mediastinal lymph nodes are consistent with old granulomas disc disease. There are small groundglass opacities with septal thickening in a patchy distribution in ri ght upper lobe with architectural distortion, likely scarring or resolving pneumonia. No pleural effu ligia. The heart size is normal. There are coronary artery calcifications. There are calcifications of aortic valve. There is ectasia of ascending aorta measuring 4.4 cm. No pericardial effusion. There i s plate and screw fixation of right clavicle. There are old healed bilateral rib fractures. There is mild thoracic spondylosis. There is mild chronic anterior wedging of multiple thoracic vertebral bodi es. IMPRESSION: 1. Lung-RADS category 2: Benign appearance or behavior. Continue annual screening with noncontrast lo w-dose chest CT in 12 months. Reviewed, dictated and finalized at location A. IMPRESSION: 1. Lung-RADS category 2: Benign appearance or behavior. Continue annual screeni ng with noncontrast low-dose chest CT in 12 months.
== END 2021-11-09 08:46 | disposition home or self-care (01) ==
LOC: CHSIMG 08:47
PROVIDERS: PCP Nurse Practitioner Family; Visit Provider Nurse Practitioner Family
DX: Z87.891 Personal history of nicotine dependence (principal)
CPT/HCPCS: 71271

== ENCOUNTER 2021-12-09 09:22 | Outpatient (CLI) | payer MEDICARE, MEDICAID, SELFPAY ==
--- NOTE | ~2021-12-09 | US_ITS ---
US arterial ankle brachial ind INDICATION: Peripheral arterial disease TECHNIQUE: Segmental pressures and plethysmographic and Doppler waveforms of the brachial and lower e xtremity arteries were obtained. COMPARISON: None. FINDINGS: Right and left brachial artery pressures of 121 mm Hg and 115 mm Hg, respectively, are concordant (no rmal difference <= 30 mmHg). The right ankle-brachial index (BRANDT) is 1.21 (normal >= 0.9-1.0). The right great toe-brachial index (TBI) is 0.57 (normal >= 0.60). The left BRANDT is 1.71. The left TBI is 0.843. IMPRESSION: 1. Mildly decreased right toe brachial index consistent with peripheral arterial disease. 2: Normal bilateral ankle and left toe brachial indices. Reviewed, dictated and finalized at location B. IMPRESSION: 1. Mildly decreased right toe brachial index consistent with peripheral arteria l disease. 2: Normal bilateral ankle and left toe brachial indices.
== END 2021-12-09 09:23 | disposition home or self-care (01) ==
LOC: CHSIMG 09:23
PROVIDERS: PCP Physician Assistant; Visit Provider Physician Assistant
DX: I73.9 Peripheral vascular disease, unspecified (principal)
CPT/HCPCS: 93922

== ENCOUNTER 2022-01-08 08:14 | Outpatient (CLI) | payer MEDICARE, SELFPAY ==
[2022-01-13 10:46] LABS: Alpha-1-Antitrypsin, QN 163 mg/dL (83-199)
== END 2022-01-08 08:15 | disposition home or self-care (01) ==
LOC: CHSLAB 08:16
PROVIDERS: PCP Physician Assistant; Visit Provider Nurse Practitioner Family
DX: E88.01 Alpha-1-antitrypsin deficiency (principal); J44.9 Chronic obstructive pulmonary disease, unspecified
CPT/HCPCS: 36415; 82103

== ENCOUNTER 2022-11-19 09:16 | Outpatient (CLI) | payer OTHER, SELFPAY ==
--- NOTE | ~2022-11-19 | CT_ITS ---
CT Scan of the Chest without Contrast: Clinical Indication: Lung cancer screening, personal history of nicotine dependence Technique: Contiguous sections were acquired throughout the chest without intravenous contrast. Dose reduction technique was used on this scan by utilizing automated exposure control and iterative recon struction technique. The dose-length product (DLP) was 121.86 mGy-cm. COMPARISON: 11/09/2021 Findings: There is no evidence of any significant mediastinal, hilar or axillary lymphadenopathy. Small calcifi ed mediastinal/hilar lymph nodes are present. There is ectasia of the ascending aorta to 4.4 cm. There is no evidence of pleural or pericardial effusion. Emphysema and chronic interstitial changes, especially in the right upper lobe, are stable from prior exam. Probable calcified granulomas are present. Images through the upper abdomen reveal no abnormalities. There are chronic appearing compression def ormities of T4, T5, T6, T7. Impression: Lung RADS 2: Benign appearance. 12 month follow-up screening CT advised. Reviewed, dictated and finalized at location . Impression: Lung RADS 2: Benign appearance. 12 month follow-up screening CT advised.
[2022-11-19 09:40] LABS: Basophils Absolute Auto 0.04 K/mm3 (0.00-0.10); Basophils Percent Auto 0.8 % (0.0-1.0); Eosinophils Absolute Auto 0.08 K/mm3 (0.02-0.50); Eosinophils Percent Auto 1.5 % (1.0-6.0); Hematocrit 43.3 % (40.0-54.0); Hemoglobin 14.6 g/dL (14.0-18.0); Immature Granulocyte Absolute 0.02 K/mm3 (0.00-0.00); Immature Granulocyte Percent A 0.4 % (0.0-0.0); Lymphocytes Absolute Auto 0.83 K/mm3 (1.10-4.50); Lymphocytes Percent Auto 15.8 % (18.0-42.0); Mean Corpuscular HGB Conc 33.7 g/dL (32.0-36.0); Mean Corpuscular Volume 89.1 fL (78.0-102.0); Mean Platelet Volume 8.8 fl (8.7-11.0); Monocytes Absolute Auto 0.35 K/mm3 (0.10-0.90); Monocytes Percent Auto 6.7 % (2.0-11.0); Neutrophils Absolute Auto 3.9 K/mm3 (1.7-7.2); Neutrophils Percent Auto 74.8 % (50.0-70.0); Platelet Count Result 207 K/mm3 (150-420); Red Blood Count 4.86 M/mm3 (4.70-6.10); Red Cell Distribution Width 12.4 % (11.6-14.4); White Blood Count 5.2 K/mm3 (4.8-10.8)
[2022-11-19 10:31] LABS: Anion Gap 10 mmol/L (8-16); Blood Urea Nitrogen 10 mg/dL (7-18); Calcium 9.4 mg/dL (8.5-10.1); Carbon Dioxide 29 mmol/L (21-32); Chloride 94 mmol/L (98-108); Estimated Glomerular Filt Rate > 60; Ferritin 180 ng/mL (26-388); Glucose 103 mg/dL (70-99); Iron 78 ug/dL (65-175); Osmolality Calculated 275 mOsm/kg (285-295); Percent Iron Saturation 23 % (12-57); Potassium 4.4 mmol/L (3.5-5.1); Sodium 133 mmol/L (136-145); Thyroid Stimulating Hormone 2.51 uIU/mL (0.36-3.74)
== END 2022-11-19 09:17 | disposition home or self-care (01) ==
LOC: CHSIMG 09:20
PROVIDERS: PCP Nurse Practitioner Family; Visit Provider Nurse Practitioner Family
DX: J44.9 Chronic obstructive pulmonary disease, unspecified (principal); R53.83 Other fatigue; G25.81 Restless legs syndrome; M25.50 Pain in unspecified joint; Z87.891 Personal history of nicotine dependence
CPT/HCPCS: 36415; 71271; 80048; 82728; 83540; 83550; 84443; 85025